=== PATIENT | female | born 1960 | race Caucasian/White ===

== ENCOUNTER → 2018-03-11 | Outpatient (CLI) | payer OTHER | LOC: HYPER 06:52 | DX: T81.89XD Other complications of procedures, not elsewhere classified, subsequent encounter (principal); M17.9 Osteoarthritis of knee, unspecified; M79.662 Pain in left lower leg; Y92.89 Other specified places as the place of occurrence of the external cause; Y83.8 Other surgical procedures as the cause of abnormal reaction of the patient, or of later complication, without mention of misadventure at the time of the procedure ==

== ENCOUNTER → 2018-03-25 | Outpatient (CLI) | payer OTHER | LOC: HYPER 07:32 | DX: T81.89XD Other complications of procedures, not elsewhere classified, subsequent encounter (principal); M17.9 Osteoarthritis of knee, unspecified; Y83.8 Other surgical procedures as the cause of abnormal reaction of the patient, or of later complication, without mention of misadventure at the time of the procedure ==

== ENCOUNTER → 2018-04-15 | Outpatient (CLI) | payer OTHER | LOC: HYPER 06:52 | DX: T81.89XD Other complications of procedures, not elsewhere classified, subsequent encounter (principal); M17.9 Osteoarthritis of knee, unspecified; M25.562 Pain in left knee; M19.90 Unspecified osteoarthritis, unspecified site; Y83.8 Other surgical procedures as the cause of abnormal reaction of the patient, or of later complication, without mention of misadventure at the time of the procedure ==